=== PATIENT | male | born 1970 | race Caucasian/White ===

== ENCOUNTER 2023-05-19 10:03 | Day surgery (SDC) | payer OTHER ==
[~2023-05-19] VITALS: Ht 188 cm; Wt 117.9 kg
[2023-05-19] MEDS ORDERED: fentaNYL citrate 0.05 MG/ML VIAL ONE ×2 (10:44→11:25)
[2023-05-19] MEDS ORDERED: diphenhydrAMINE 50 MG/ML VIAL ONE (10:44)
[2023-05-19] MEDS ORDERED: MIDAZOLAM 5 MG/5 ML VIAL ONE (10:45)
== END 2023-05-19 11:58 | disposition home or self-care (01) ==
LOC: MDS 10:03 → MMU 10:03 → MDS 11:58
PROVIDERS: ATTEND Internal Medicine Gastroenterology
DX: D64.9 Anemia, unspecified (principal); K59.00 Constipation, unspecified; J45.909 Unspecified asthma, uncomplicated; Z80.0 Family history of malignant neoplasm of digestive organs; Z80.3 Family history of malignant neoplasm of breast
CPT/HCPCS: 43239; 45378; J1200; J2250; J3010